=== PATIENT | female | born 1965 | race Caucasian/White ===

== ENCOUNTER 2021-09-03 12:00 | Emergency (ER) | payer OTHER ==
[~2021-09-03] VITALS: Ht 162.6 cm; Wt 86.2 kg
[~2021-09-03 12:00] MED LIST: 3IN1 COMMODE; BENTYL10 MG PO; BENTYL20 MG PO; CRESTOR20 MG PO; INVOKANA300 MG PO; LASIX20 MG PO; LEVAQUIN750 MG PO; METRONIDAZOLE500 MG PO; NORCO 5-325 TA1 EACH PO; PHENERGAN12.5 M1 PO; PHENERGAN25 M1 PO; PRINIVIL20 MG PO; PROTONIX 40MG T40 MG PO; ROBAXIN500 MG PO; T:SLIM1 EACH SC; VITAMIN D350000 UNIT PO; VOLTAREN **OUT75 MG PO; ZESTORETIC 10-1 EACH PO; ZOFRAN4 MG PO; [UNRECOGNIZED DRUG - CODE] PO
[2021-09-03 12:44] LABS: BASOPHIL 0.9 % (0-2); HCT 42.7 % (37.0-47.0); HGB 13.9 g/dl (12.5-16.0); LYMPHOCYTE 30.4 % (15-48); MCH 29.3 pg (25.0-31.0); MCHC 32.6 g/dL (32.0-36.0); MCV 89.9 fL (78.0-100.0); MONOCYTE 7.2 % (0-12); MPV 11.8 fL (6.0-9.5); NEUTROPHIL 56.4 % (41-80); NRBC 0; PLT 180 K/uL (150-400); RBC 4.75 M/uL (4.20-5.40); RDW 12.4 % (11.5-14.0); WBC 8.2 K/uL (4.0-10.5)
[2021-09-03 13:20] LABS: INR 1.03 (0.9-1.2); PROTHROMBIN TIME 12.9 SECONDS (11.8-13.4); PTT 23.3 SECONDS (24.4-34.7)
[2021-09-03 14:52] LABS: CREATININE 1.05 mg/dL (0.51-0.95)
[2021-09-03 14:53] LABS: ALBUMIN 3.6 g/dL (3.4-5.0); GLOBULIN (CALCULATION) 3.5 g/dL; POTASSIUM 3.9 mmol/L (3.5-5.1); TOTAL PROTEIN 7.1 g/dL (6.4-8.2)
[2021-09-03 14:54] LABS: BILIRUBIN - TOTAL 0.3 mg/dL (0.2-1.0)
[2021-09-03] MEDS ORDERED: ZOFRAN4 M1 PO (16:23)
[2021-09-03] MEDS ORDERED: BENTYL10 MG PO (16:23)
== END 2021-09-03 16:46 | disposition home or self-care (01) ==
LOC: FER 12:00
PROVIDERS: Nurse Practitioner Family
DX: K57.30 Diverticulosis of large intestine without perforation or abscess without bleeding (principal); E11.9 Type 2 diabetes mellitus without complications; I10 Essential (primary) hypertension; Z88.2 Allergy status to sulfonamides; Z88.5 Allergy status to narcotic agent; Z88.8 Allergy status to other drugs, medicaments and biological substances; Z96.41 Presence of insulin pump (external) (internal); Z79.899 Other long term (current) drug therapy
CPT/HCPCS: 36415; 80053; 82150; 83690; 85025; 85610; 85730; 93005; J2270; J2405; J7030